=== PATIENT | female | born 1990 | race Caucasian/White ===

== ENCOUNTER 2018-07-17 14:47 | Emergency (ER) | payer BC, SELFPAY ==
[2018-07-17] VITALS (28 sets, daily range): BP systolic 98–118; BP diastolic 48–72; PULSE 72–96; RESP 12–24; TEMP 36.7–36.9; O2SAT 97–100
--- NOTE | 2018-07-17 15:06 | ED.GENADUL ---
Disposition Clinical Impression: Vertigo, Dizziness Disposition: HOME Condition: Stable Instructions: Vertigo (ED), Meclizine (By mouth), Scopolamine (Absorbed through the skin) Additional Instructions: you should be contacted with an appointment with a primary care provider if you have new symptoms such as fevers, persistent vomit or difficulty breathing return to the emergency department Prescriptions: Meclizine [Antivert] 25 mg PO Q8H PRN PRN #20 tab PRN Reason: Dizziness Scopolamine 1 each TD DAILY #3 patch.td.3 Medical Decision Making - Lab Data Results reviewed for labs ordered during visit: Yes - Radiology Data Radiology results: report reviewed, image reviewed - Medical Decision Making Pt here with complaints of mild headache throughout the day and symptoms that seem most consistent with peripheral vertigo given dizziness with head turning and no findings on exam to suggest central process. Will eval for anemia and electrolyte abnormalities and monitor. No fevers or meningismus so doubt associate account executive infection. Not worst [place] of her life and not thunderclap so doubt sah. No findings on exam or hx to suggest cavernous sinus thrombosis or cerebral venous thrombosis and is not on control, denies being and no prior clots so not high risk for having clots form labs show no significant findings, but she continues to have persistent symptoms despite medications, given this will evaluate further for entities such as dissection with cta. imaging all negative, she does feel better and still has some dizziness with head turning, none at rest, no chest pain or sob. Will d/c home and have I have added her to the f/u list to get a pcp in the area as she just moved here and hopefully see someone within a week for vertigo - Differential Diagnosis vertigo, anemia, electrolyte abnormality, ectopic History of Present Illness - General Chief complaint: Dizzy/Sync Stated complaint: UNKNOWN Time Seen by Provider: 07/17/18 14:58 Source: patient Mode of arrival: wheelchair Limitations: no limitations - History of Present Illness Initial comments: 27 yo female with hx of adhd comes in with chief complaint of feeling dizzy today. She states she woke up and has had a slowly worsening headache, has a history of migraines. SHe has noticed with head turning that she feels the room is spinning and feels off balance. Denies chest pain, pressure, shortness of breath, abdominal pain recent fevers or urinary symptoms. She has no focal neuro deficits on exam, CN II-xii intact and has horizontal nystagmus when looking to the left. She is also complaining of left ear pain and has normal appearing TM MD Complaint: dizzy Onset/Timin -: days(s) Improves with: none Worsens with: none Associated Symptoms: denies other symptoms Treatments Prior to Arrival: none - Related Data Meclizine [Antivert] 25 mg PO Q8H PRN PRN #20 tab 07/17/18 Naproxen Sodium [Aleve] 1 tab PO PRN 07/17/18 Scopolamine 1 each TD DAILY #3 patch.td.3 07/17/18 Allergies Allergy/AdvReac Type Severity Reaction Status Date / Time cefaclor [From Ceclor] AdvReac Unknown Unverified 07/17/18 15:01 erythromycin base AdvReac Unknown Unverified 07/17/18 15:01 Sulfa (Sulfonamide AdvReac Unknown Unverified 07/17/18 15:01 Antibiotics) Review of Systems Constitutional: denies: fever Respiratory: denies: shortness of breath Cardiovascular: denies: chest pain, palpitations, dyspnea on exertion, syncope Gastrointestinal: denies: abdominal pain, nausea, vomiting Skin: denies: rash Neurological: vertigo. denies: headache Comment: All other systems reviewed and negative Past Medical History - Past Medical History Medical history: no medical history - Social History Smoking status: never smoker Alcohol use: rarely Drug use: none General Exam - General Limitations: no limitations General appearance: alert, in no apparent distress - Head Head exam: Present: atraumatic - Eye Eye exam: Present: normal apperance, PERRL, EOMI, nystagmus - ENT ENT exam: Present: mucous membranes moist, TM's normal bilaterally, normal external ear exam - Neck Neck exam: Present: normal inspection, full ROM. Absent: meningismus - Respiratory Respiratory exam: Absent: respiratory distress - Cardiovascular Cardiovascular Exam: Present: regular rate - Extremities Exam Extremities exam: Present: normal inspection, full ROM - Neurological Exam Neurological exam: Present: alert, oriented X3, CN II-XII intact, normal gait. Absent: motor sensory deficit - Psychiatric Psychiatric exam: Present: normal affect - Skin Skin exam: Present: warm Course Vital Signs - 24 hr 07/17/18 14:53 Temperature 98.4 F Pulse 73 Respiratory 18 Rate Blood Pressure 106/63 Pulse Oximetry 100
[2018-07-17] MEDS: Normal Saline 1,000 ML 1000 ML IV (15:18)
[2018-07-17] MEDS: Meclizine 25 MG TAB PO ×2 (15:18→19:14)
[2018-07-17] MEDS: Ketorolac 15 MG/ML VIAL IVP (15:18)
[2018-07-17 15:37] LABS: Abs Immature Grans 0.01 k/cumm (0.0-0.09); Absolute Basophil Count 0.01 k/cumm (0.0-0.2); Absolute Eosinophil Count 0.11 k/cumm (0.0-0.7); Absolute Lymphocyte Count 1.74 k/cumm (1.2-3.4); Absolute Monocyte Count 0.45 k/cumm (0.11-0.7); Absolute Neutrophil Count 3.79 k/cumm (1.2-6.7); Basophils % 0.2; Eosinophils % 1.8; HCT 37.9 % (36.0-46.0); HGB 13.2 g/dL (12.0-15.5); Immature Grans % 0.2; Lymphocytes % 28.5; Mean Corp. HGB Concentration 34.8 g/dL (32.0-36.0); Mean Corpuscular Hemoglobin 31.1 pg (27.0-33.0); Mean Corpuscular Volume 89.4 fL (80-95); Mean Platelet Volume 9.8 fL (8.0-11.0); Monocytes % 7.4; Neutrophils % 61.9; Platelet Count 275 x1000/uL (130-400); RBC 4.24 m/cumm (4.00-5.20); RBC Distribution Width 12.8 % (11.7-14.6); White Blood Cell Count 6.11 k/cumm (4.4-10.8)
[2018-07-17 15:48] LABS: ALT 23 U/L (12-78); AST 17 U/L (15-37); Albumin 3.8 g/dL (3.4-5.0); Alkaline Phosphatase 83 U/L (46-116); Anion Gap 6.4 mmol/L (3-11); BUN 10 mg/dL (7-18); Bilirubin, Total 0.4 mg/dL (0.2-1.0); CO2 25.6 mmol/L (21.0-32.0); CREATININE 0.71 mg/dL (0.55-1.02); Calcium 8.6 mg/dL (8.5-10.1); Chloride 105 mmol/L (98-107); Glucose 107 mg/dL (70-100); Magnesium 1.8 mg/dL (1.8-2.4); Potassium 3.7 mmol/L (3.5-5.1); Sodium 137 mmol/L (136-145); Total Protein 7.2 g/dL (6.4-8.2)
[2018-07-17] MEDS: LORazepam 2 MG/ML VIAL 1 MG IVP (16:02)
[2018-07-17] MEDS: Scopolamine 1 MG/3 DAYS PATCH TD (16:06)
--- NOTE | 2018-07-17 17:04 | DI.RPTCT_ITS ---
SYMPTOM/DIAGNOSIS: VERTIGO NONCONTRAST HEAD CT: No intracranial hemorrhage, mass or infarct seen. The ventricles are normal in size. There is no evidence of skull fracture. There is minimal ethmoid sinus disease. The mastoid air cells appear clear. IMPRESSION: Negative head CT.
--- NOTE | 2018-07-17 17:05 | DI.RPTCT_ITS ---
SYMPTOM/DIAGNOSIS: HEADACHE, DIZZINESS. ? DISSECTION CTA NECK: The arterial system is well opacified with IV contrast. There is no significant stenosis or evidence of dissection or occlusion involving the common, internal, external carotid arteries. No bony abnormalities are identified. The lung apices appear clear. IMPRESSION: Negative CT angiogram of the neck. CT ANGIOGRAM OF THE [place]: There is no evidence of occlusion, aneurysm or significant stenosis. There are anatomic variants with absence of the A-1 segment of the right anterior cerebral artery. The A-2 segment is supplied by the left anterior cerebral artery. A perforating arterial branch is seen communicating with the right posterior cerebral artery. IMPRESSION: Vascular anatomic variants. No evidence of occlusion, stenosis or aneurysm.
--- NOTE | 2018-07-17 17:06 | NUR.NOTE ---
Nursing Note: have been gradually elevating HOB to see if pt tolerates being upright. Stood by side of bed -states she feels like she could fall over --Dr Philippe notified
[2018-07-17] MEDS: Omnipaque 350 MG/ML 100 ML BTL IJ (18:11)
--- NOTE | 2018-07-17 18:25 | DI.VRAD_ITS ---
EXAM: CT Head Without Intravenous Contrast CLINICAL HISTORY: 27 years old, female; Signs and symptoms; Dizziness and other: Vertigo; Patient HX: Vertigo, dizziness TECHNIQUE: Axial computed tomography images of the head/brain without intravenous contrast. Coronal and sagittal reformatted images were created and reviewed. COMPARISON: No relevant prior studies available. FINDINGS: Brain: No intracranial hemorrhage. No cerebral edema. No extra-axial collections. No mass or midline shift. Normal lewis-white differentiation. No territorial infarct. Orbits unremarkable as visualized. Ventricles: The ventricles are normal in position. No hydrocephalus. Bones/joints: Unremarkable. No acute fracture. Soft tissues: Unremarkable. Sinuses: Mucoperiosteal thickening in a RIGHT middle ethmoid air cell. No air-fluid levels in sinuses as visualized. Mastoid air cells: Unremarkable as visualized. No mastoid effusion. IMPRESSION: No acute intracranial findings. As a negative CT scan does not exclude an acute stroke, if there is concern for an acute infarct, followup MRI of the brain with diffusion weighted images or CT scan of the brain within 24 hours is recommended if there are no contraindications to MRI. Mild RIGHT ethmoid sinus mucoperiosteal thickening. Dictated and Authenticated by: Sapna Valle MD. Ordering:GUERITA SHAH MD
--- NOTE | 2018-07-17 18:45 | DI.VRAD_ITS ---
EXAM: CT Angiography Head With Intravenous Contrast CLINICAL HISTORY: 27 years old, female; Signs and symptoms; Dizziness and giddiness and vertigo; Patient HX: Vertigo, dizziness; Additional info: ? Dissection TECHNIQUE: Axial computed tomographic angiography images of the head with intravenous contrast using CT angiography protocol. MIP reconstructed images were created and reviewed. COMPARISON: No relevant prior studies available. FINDINGS: Right internal carotid artery: See below. 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 The RIGHT A2 segment is supplied by the LEFT anterior cerebral artery. The A1 segment of the LEFT anterior cerebral artery is unremarkable. Distal to this point there appears to be a bifurcated A2 segments (series 9, image 30). Distal to this point there is a short segment of a single A2 segment which then bifurcates into RIGHT and LEFT A2 segments. These findings are likely anatomic variants. No occlusion or significant stenosis. No aneurysm. Right middle cerebral artery: Unremarkable. No occlusion or significant stenosis. No aneurysm. Right posterior cerebral artery: There is a vascular structure which appears to connect with the RIGHT posterior cerebral artery (series 9, image 35 and series 4, image 469) which does not definitively arise from the RIGHT internal carotid artery as would be expected of the RIGHT posterior communicating artery. This may therefore be a perforating arterial branch. No occlusion or significant stenosis. No aneurysm. Right vertebral artery: Unremarkable as visualized. Left internal carotid artery: No acute findings. Intracranial segment is patent with no significant stenosis. No aneurysm. Left anterior cerebral artery: See above. Left middle cerebral artery: Unremarkable. No occlusion or significant stenosis. No aneurysm. Left posterior cerebral artery: Unremarkable. No occlusion or significant stenosis. No aneurysm. Left vertebral artery: Unremarkable as visualized. Basilar artery: Unremarkable. No occlusion or significant stenosis. No aneurysm. IMPRESSION: Probable anatomic variation in the anterior cerebral arteries as discussed. No evidence of stenosis or occlusion. No dissection. Probable prominent perforating arterial branch extending to the RIGHT posterior cerebral artery. EXAM: CT Angiography Neck With Intravenous Contrast CLINICAL HISTORY: 27 years old, female; Signs and symptoms; Dizziness and giddiness and vertigo; Patient HX: Vertigo, dizziness; Additional info: ? Dissection TECHNIQUE: Axial computed tomographic angiography images of the neck with intravenous contrast using CT angiography protocol. MIP reconstructed images were created and reviewed. COMPARISON: CT - HEAD WITHOUT CONTRAST 2018-07-17 17:13 FINDINGS: VASCULATURE: Right common carotid artery: Unremarkable. No significant stenosis. No dissection or occlusion. Right internal carotid artery: Unremarkable. Extracranial segment is patent with no significant stenosis. No dissection or occlusion. Right external carotid artery: Unremarkable. No occlusion. Right vertebral artery: Unremarkable. No significant stenosis. No dissection or occlusion. Left common carotid artery: Unremarkable. No significant stenosis. No dissection or occlusion. Left internal carotid artery: Unremarkable. Extracranial segment is patent with no significant stenosis. No dissection or occlusion. Left external carotid artery: Unremarkable. No occlusion. Left vertebral artery: Unremarkable. No significant stenosis. No dissection or occlusion. Other vasculature: The brachiocephalic vessels arising from the aortic arch have a normal branching pattern. NECK: Bones/joints: No acute fracture. No dislocation. Soft tissues: Unremarkable as visualized. No mass. Lung apices: Visualized lungs are unremarkable. CAROTID STENOSIS REFERENCE USING NASCET CRITERIA: % ICA stenosis = (1 - narrowest ICA diameter/diameter of distal cervical ICA) x 100. Mild - <50% stenosis. Moderate - 50-69% stenosis. Severe - 70-94% stenosis. Near occlusion - 95-99% stenosis. Occluded - 100% stenosis. IMPRESSION: Unremarkable CT angiogram of the extracranial circulation. Dictated and Authenticated by: Sapna Valle MD. Ordering:GUERITA SHAH MD
--- NOTE | 2018-07-18 08:31 | PDOC.ERCMPRO ---
Care Management Progress Note 07/18-Dr. Philippe requested assistance with a PCP ([facility] resolution agent) f/u in one week for dizziy/syncopal. Also needs to establish care. Recently moved to [facility]. Referral faxed to [facility] today.
--- NOTE | 2018-07-18 08:32 | CMPROGNOTE_ITS ---
Care Management Progress Note 07/18-Dr. Philippe requested assistance with a PCP ([facility] professional caster) f/u in one week for dizziy/syncopal. Also needs to establish care. Recently moved to [facility]. Referral faxed to [facility] today.
== END 2018-07-17 19:24 | disposition home or self-care (01) ==
PROVIDERS: Emergency Provider Emergency Medicine
DX: R42 Dizziness and giddiness (principal); R51 Headache
CPT/HCPCS: 36415; 70496; 70498; 80053; 81025; 99285; 70450; 83735; 85025; 99284; J1885; J2060; J3490